=== PATIENT | female | born 2000 | race Two or more races ===

== ENCOUNTER 2021-03-02 21:21 | Emergency (ER) | payer OTHER ==
--- NOTE | 2021-03-02 22:19 | CR ---
INDICATION: Injury, dropped object on foot a restaurant. Big toe pain TECHNIQUE: Foot radiograph 2 views right COMPARISON: None FINDINGS: Bone: There is a nondisplaced intra-articular fracture present along the distal 1st phalanx involving approximately 33 percent of the lateral articular surface. Joint: The visualized hindfoot, midfoot, and forefoot joints are unremarkable in appearance. No significant ankle effusion is seen. Soft tissue: Unremarkable. No radiopaque foreign bodies are seen. IMPRESSION: 1. There is a nondisplaced intra-articular fracture present along the distal 1st phalanx involving approximately 33 percent of the lateral articular surface. Dictated by Jerson Butt MD @ 03/02/2021 10:17:42 PM Dictated by: Jerson Butt MD @ 03/02/2021 22:17:48 (Electronically Signed)
[2021-03-02] MEDS ORDERED: Ibuprofen 600 MG Tab PO ONE (22:31)
[2021-03-02] MEDS ORDERED: Acetaminophen 325 MG Tab PO ONE (22:31)
--- NOTE | 2021-03-02 22:34 | EDM.PDOC ---
ED HPI GENERAL MEDICAL PROBLEM - General Chief Complaint: Lower Extremity Injury/Pain Stated Complaint: CHUNK OF CONCRETE FELL ON TOE AT WORK Time Seen by Provider: 03/02/21 22:27 - History of Present Illness INITIAL COMMENTS - FREE TEXT/NARRATIVE: HISTORY AND PHYSICAL: History of present illness: This is a 20-year-old female who presents ER today secondary to pain to her right big toe after a heavy object fell on it prior to arrival. Patient reports has been weightbearing since except with pain. Review of systems: As per history of present illness and below otherwise all systems reviewed and negative. Past medical history: As per history of present illness and as reviewed below otherwise noncontributory. Surgical history: As per history of present illness and as reviewed below otherwise noncontributory. Social history: No reported history of drug abuse. Family history: As per history of present illness and as reviewed below otherwise noncontributory. Physical exam: This patient was seen and evaluated during the 2019 SARS-CoV-2 novel coronavirus pandemic period. Community viral transmission is ongoing at time of this encounter and the emergency department is operating under pandemic response proc edures. Constitutional: Patient is oriented to person, place, and time. Appears well- developed and well-nourished. No distress. HEENT: Moist mucous membranes Head: Normocephalic and atraumatic Eyes: Right eye exhibits no discharge. Left eye exhibits no discharge. No scleral icterus Neck: Normal range of motion. No tracheal deviation present. Cardiovascular: Normal rate and regular rhythm. Pulmonary: Effort normal, no respiratory distress. Abdominal: No distention Musculoskeletal: Normal range of motion Neurologic: Alert and oriented to person, place and time. Skin: Orrin, warm and dry. Psychiatric: Normal mood and affect. Behavior is normal. Judgment and thought content normal. Nursing note and vital signs have been reviewed Patient's ER physical exam is significant for tenderness to palpation swelling to her right big toe greatest over the distal phalanx. Diagnostics: X-ray of right foot reveals a intra-articular fracture of her distal phalanx of her right great toe. No dislocation, no significant angulation or displacement of the fracture Therapeutics: Hard soled shoe, ibuprofen and Tylenol Assessment and plan: 20-year-old female who presents ER today secondary to injury to her right big toe. X-ray reveals a intra-articular fracture of her distal phalanx of her right big toe. Patient was placed in a hard sole shoe and will be given ibuprofen and Tylenol instructed to follow-up with her primary care physician for further evaluation. Reassessment at the time of disposition demonstrates that the patient is in no acute distress. The patient has remained stable throughout the entire ED visit and is without objective evidence for acute process requiring urgent intervention or hospitalization. The patient is stable for discharge, counseling is provided as documented above, discussed symptomatic treatment and specific conditions for return. I have spoken with the patient/caregiver and discussed todays findings, in addition to providing specific details for the plan of care. Questions are answered and there is agreement with the plan. Definitive disposition and diagnosis as appropriate pending reevaluation and review of above. DME note: Hard soled shoe ordered secondary to fracture of the distal phalanx of the right great toe. This will assist with immobilizing the fracture fragments to assist with healing. Patient will need to keep shoe on for 4 weeks. Right Foot Pain Score (Numeric/FACES): 6 - Related Data Allergies Allergy/AdvReac Type Severity Reaction Status Date / Time No Known Allergies Allergy Verified 03/02/21 21:50 Home Meds: Home Meds Ibuprofen 600 mg PO Q6HR PRN #30 tablet 03/02/21 [Rx] Past Medical History - Past Health History Medical/Surgical History: Denies Medical/Surgical History - Infectious Disease History Infectious Disease History: Reports: Chicken Pox Social & Family History - Family History Family Medical History: No Pertinent Family History - Tobacco Use Tobacco Use Status *Q: Never Tobacco User Second Hand Smoke Exposure: No - Recreational Drug Use Recreational Drug Use: No Review of Systems - Review of Systems Review Of Systems: See Below ED EXAM, GENERAL - Physical Exam Exam: See Below Course - Vital Signs Last Recorded V/S: Last Vital Signs Temp 98.4 F 03/02/21 21:44 Pulse 89 03/02/21 21:44 Resp 16 03/02/21 21:44 BP 113/70 03/02/21 21:44 Pulse Ox 100 03/02/21 21:44 - Orders/Labs/Meds Orders: Active Orders 24 hr Category Date Time Status Acetaminophen [TylenoL] Med 03/02/21 22:31 Once 650 mg PO NOW ONE Ibuprofen [Motrin] Med 03/02/21 22:31 Once 600 mg PO ONETIME ONE DME for Discharge [COMM] Stat Oth 03/02/21 22:30 Ordered Departure - Departure Time of Disposition: 22:33 Disposition: Home, Self-Care 01 Condition: Good Clinical Impression: Fracture of great toe, right, closed Qualifiers: Encounter type: initial encounter Phalanx: distal Fracture alignment: nondisplaced Qualified Code(s): S92.424A - Nondisplaced fracture of distal phalanx of right great toe, initial encounter for closed fracture - Discharge Information Instructions: Toe Fracture, [id number] Referrals: [facility] [Primary Care Provider] - Additional Instructions: You were seen and evaluated in the ER today secondary to a fracture of your right great toe. You will be placed in a hard sole shoe that you will need to wear while you are ambulating for the next 3 to 4 weeks to assist with healing. You can take ibuprofen and acetaminophen [id number] as needed for pain and discomfort. Please follow-up with your family doctor to assure healing of the fracture fragments. The following information is given to patients seen in the emergency department who are being discharged to home. This information is to outline your options for follow-up care. We provide all patients seen in our emergency department with a follow-up referral. The need for follow-up, as well as the timing and circumstances, are variable depending upon the specifics of your emergency department visit. If you don't have a primary care physician on staff, we will provide you with a referral. We always advise you to contact your personal physician following an emergency department visit to inform them of the circumstance of the visit and for follow-up with them and/or the need for any referrals to a consulting specialist. The emergency department will also refer you to a specialist when appropriate. This referral assures that you have the opportunity for follow-up care with a specialist. All of these measure are taken in an effort to provide you with optimal care, which includes your follow-up. Under all circumstances we always encourage you to contact your private physician who remains a resource for coordinating your care. When calling for follow-up care, please make the office aware that this follow-up is from your recent emergency room visit. If for any reason you are refused follow-up, please contact the [facility] Emergency Department at and asked to speak to the emergency department charge nurse. [facility] [address] [place] [address] [facility] [address] [place] [address] Sepsis Event Note (ED) - Evaluation Sepsis Screening Result: No Definite Risk - Focused Exam Vital Signs: Vital Signs Temp Pulse Resp BP Pulse Ox 03/02/21 21:44 98.4 F 89 16 113/70 100 - My Orders Last 24 Hours: My Active Orders 03/02/21 22:30 DME for Discharge [COMM] Stat 03/02/21 22:31 Acetaminophen [TylenoL] 650 mg PO NOW ONE Ibuprofen [Motrin] 600 mg PO ONETIME ONE - Assessment/Plan Last 24 Hours: My Active Orders 03/02/21 22:30 DME for Discharge [COMM] Stat 03/02/21 22:31 Acetaminophen [TylenoL] 650 mg PO NOW ONE Ibuprofen [Motrin] 600 mg PO ONETIME ONE
== END 2021-03-02 22:51 | disposition home or self-care (01) ==
LOC: MW.ED 21:21
DX: S92.424A Nondisplaced fracture of distal phalanx of right great toe, initial encounter for closed fracture (principal); W20.8XXA Other cause of strike by thrown, projected or falling object, initial encounter
CPT/HCPCS: 73620; 99283; A9270